=== PATIENT | female | born 1950 | race Caucasian/White ===

== ENCOUNTER → 2016-06-09 | Outpatient (CLI) | payer OTHER, MEDICARE | LOC: RAD 01:28 | DX: Z12.31 Encounter for screening mammogram for malignant neoplasm of breast (principal) ==

== ENCOUNTER → 2017-01-29 | Outpatient (CLI) | payer OTHER, MEDICARE | LOC: ULTRA 09:02 | DX: M25.461 Effusion, right knee (principal) ==

== ENCOUNTER → 2017-02-24 | Outpatient (CLI) | payer OTHER, MEDICARE | LOC: MRI 14:50 | DX: M47.896 Other spondylosis, lumbar region (principal); M51.36 Other intervertebral disc degeneration, lumbar region; M12.88 Other specific arthropathies, not elsewhere classified, other specified site; M48.061 Spinal stenosis, lumbar region without neurogenic claudication ==

== ENCOUNTER → 2017-04-02 | Outpatient (CLI) | payer OTHER, MEDICARE ==
[~2017-04-02] VITALS: Ht 157.5 cm; Wt 62.1 kg
[~2017-04-02] MED LIST: CALCIUM 600 MG1 EAC2 PO; ESTRADIOL 1 MG T1 M1 PO; FISH OIL 1,001000 M2 PO; LIPITOR 20 MG T20 M1 PO; NABUMETONE 500500 M1 PO; PROVERA2.5 MG PO; TYLENOL325 MG PO
--- NOTE | ~2017-04-02 | HPC ---
[facility] [place] [address] PAIN MANAGEMENT CONSULTATION Name: MADINAJUANAVIRA JEREMIE Room #: REG [facility] Shae#: [id number] Admission: 04/02/17 Attend Phys: Matt Mann DO Discharge: Date of : 46 Report #: [id number] THIS REPORT FOR: //name// CC: Rosendo Mann The patient is a 66-year-old female seen in consultation on 03/13/2017, diagnosed with symptomatic lumbar radiculopathy, the right L5 radicular distribution. Started the patient on nabumetone 500 mg b.i.d. and sought authorization for lumbar epidural injection under fluoroscopy. The patient returns to pain clinic today noting pain remains problematic; rates pain at 2-3 on a VAS, but notes it is primarily exacerbated at night; interferes with function and sleeping. Pain is in the right L5 distribution with pain in the back of the right leg down to the foot. Physical exam is unchanged from last visit. The patient wishes to proceed with epidural injection under fluoroscopy as discussed at prior visit. She did note preprocedure that she does "get lightheaded" when she is nervous and with injections. ASSESSMENT: Symptomatic lumbar radiculopathy. PROCEDURE: Lumbar epidural injection under fluoroscopy. PROCEDURE NOTE: After both written and informed consent to include risk of spinal cord damage, increased pain, weakness and dural puncture, the patient was taken to the fluoroscopy suite, placed in the prone position. After sterile prep and drape, a skin wheal with lidocaine was raised. A 22-gauge epidural Tuohy needle was inserted in the midline at L5-S1 with good loss to resistance. Negative aspiration for cerebrospinal fluid or blood was noted. Then 1 mL of Omnipaque under biplanar fluoroscopy showed good spread within the epidural space. This was followed with 80 mg of triamcinolone plus 1 mL of 1.5% preservative-free Xylocaine, 0.5 mL Xylocaine was then injected to flush the needle; it was removed. The patient was monitored for an appropriate period of time and discharged in good and stable condition. In the recovery room, the patient did have a "vasovagal" type presentation. She felt subjectively lightheaded, blood pressure dropped down to 80 systolic. She was placed supine with the legs elevated. I started an IV in the dorsum of the right wrist. This unfortunately infiltrated. This was immediately noted, that IV was discontinued. I started the second IV in the left forearm, a 20-gauge Angiocath. We infused 500 mL over about 45 minutes. The patient had a nice response, blood pressure returned in the mid 90s. Subjective presyncopal symptoms resolved. The patient was monitored for approximately 1 hour. IV was discontinued. The patient states she felt "much better." She was alert and [address] [address] PAIN MANAGEMENT CONSULTATION Name: VIRA RAMOS JEREMIE Room #: REG [facility] Shae#: [id number] Admission: 04/02/17 Attend Phys: Matt Mann DO Discharge: Date of : 46 Report #: [id number] oriented. Discharged in good and stable condition. Followup appointment is in 3-4 weeks to evaluate efficacy of interventional therapy. <ELECTRONICALLY SIGNED> By: Matt Mann DO 04/03/17 0731 [id number] 2102 Matt Mann DO /nt
[2017-04-02 09:48] VITALS: BP 139/87
== END | disposition home or self-care (01) ==
LOC: PAIN 06:23
DX: M54.16 Radiculopathy, lumbar region (principal); G89.29 Other chronic pain; Z79.899 Other long term (current) drug therapy

== ENCOUNTER → 2017-04-24 | Outpatient (CLI) | payer OTHER, MEDICARE ==
[~2017-04-24] VITALS: Ht 157.5 cm; Wt 62.0 kg
--- NOTE | ~2017-04-24 | HPC ---
[facility] Tamra Gonzalez [facility] [place] [address] PAIN MANAGEMENT CONSULTATION Name: MADINAJUANAVIRADANICA CHAO Room #: REG [facility]SEIN Kaufman#: [id number] Admission: 04/24/17 Attend Phys: Matt Mann DO Discharge: Date of : 46 Report #: [id number] THIS REPORT FOR: //name// CC: Rosendo Mann The patient is a pleasant 66-year-old female, prior seen in consultation on 03/13/2017, diagnosed with symptomatic lumbar radiculopathy. We sought authorization for epidural injection under fluoroscopy. This was accomplished on 04/02/2017, at L5-S1. The patient did have a vasovagal response following the procedure. She returns to pain clinic today noting she had dramatic improvement of baseline pain. She states pain is 95% overall improved. She played tennis with no pain. She completed nabumetone and stopped about a week ago with no change in symptoms. He returns to pain clinic today noting pain is 0 on a VAS, she has not limited her activity. PHYSICAL EXAMINATION: Shows a 66-year-old female, BMI is 25 kg/m2. Blood pressure is 121/71, pulse 102, respirations 16. Rises from chair easily. Gait is tandem. Lower extremity strength is symmetric. Lumbar flexion is good. Straight leg raise is negative. ASSESSMENT: Symptomatic lumbar radiculopathy by clinical exam and history, excellent relief following single epidural injection. RECOMMENDATIONS: If lumbar radicular symptoms begin to recur, we will have the patient to start gxwd-kce-kohwhtk Aleve. If this does not afford adequate relief, I will enable the nursing staff to phone in a prescription for nabumetone 500 mg b.i.d., limit 60 tablets. If this does not afford adequate relief, we will be happy to see the patient for reevaluation. If the patient does need another epidural injection, we will likely want to start an IV first and give her some fluid. She does note that she gets lightheaded when she donates blood or gets a blood draw. I pointed out she simply had a vasovagal response, this is not unexpected, seen in many patients, but certainly can be startling subjectively. We did point out that any interventional therapies we do, i.e., the epidural injection under fluoroscopy with steroid are completely elective. [address] [address] PAIN MANAGEMENT CONSULTATION Name: VIRA RAMOS Room #: REG [facility] Kaufman#: [id number] Admission: 04/24/17 Attend Phys: Matt Mann DO Discharge: Date of : 46 Report #: [id number] The patient was discharged in good and stable condition. Follow up simply as needed. <ELECTRONICALLY SIGNED> By: Matt Mann DO 04/27/17 0759 0912 Patricia Mann DO /nt
[2017-04-24 08:44] VITALS: BP 121/71
== END ==
LOC: PAIN 04-23 14:21
DX: M54.16 Radiculopathy, lumbar region (principal)

== ENCOUNTER → 2017-06-10 | Outpatient (CLI) | payer OTHER, MEDICARE | LOC: RAD 01:14 | DX: Z12.31 Encounter for screening mammogram for malignant neoplasm of breast (principal) ==

== ENCOUNTER → 2018-04-19 | Outpatient (CLI) | payer OTHER, MEDICARE ==
[~2018-04-19] VITALS: Ht 157.5 cm; Wt 59.0 kg
[~2018-04-19] MED LIST changes: +CENTRUM SILVER1 EAC4 PO
--- NOTE | ~2018-04-19 | PATH ---
[facility] [place] [address] PATHOLOGY RPT PROCEDURE Name: SUSAN RAMOSLIE Room #: REG [facility]..#: [id number] Admission: 04/19/18 Date of : 46 Discharge: Report #: [id number] Path Case #: [id number] [facility] Accession Number: [id number] . 01 Material submitted: . PART A: BX OF POLYPS X2 AT PROX ASCENDING COLON PART B: BX OF POLYP AT HEPATIC FLEXURE PART C: BX OF POLYP AT MID TRANSVERSE PART D: BX OF POLYP AT 20CM . 01 Clinical history: . Pre-OP DX: Hx of polyps Post-OP DX: Colon polyps, diverticulosis, hemorrhoids . 02 Diagnosis: A. Polyps x 2, at proximal ascending colon, endoscopic biopsy: - Multiple fragments showing tubular adenoma. - Negative for high grade dysplasia. - One fragment showing lymphoid aggregate and hyperplastic changes. . B. Polyp, at hepatic flexure, endoscopic biopsy: - Tubular adenoma. - Negative for high grade dysplasia. . C. Polyp, at mid transverse colon, endoscopic biopsy: - Hyperplastic polyp. - Negative for dysplasia. . D. Polyp, at 20 cm, endoscopic biopsy: - Tubular adenoma. - Negative for high grade dysplasia. (IUV/db; 04/20/18) LBQ/04/20/2018 . 02 Electronically signed: . Karolyn Perez MD, Pathologist NPI- [id number] . 01 Gross description: . A. Received in formalin labeled "Susan Ramos, BX of polyps x2 at proximal ascending colon," are 2 segments of lyons soft tissue measuring 0.9 x 0.2 x 0.2 cm in aggregate dimensions and ranging from 0.3 to 0.6 cm in maximum dimension. The specimen is submitted entirely in cassette A1. . B. Received in formalin labeled "Susan Ramos, BX of polyp at hepatic flexure," is a single segment of lyons soft tissue measuring 0.4 cm in maximum dimension. The specimen is entirely submitted in cassette B1. [address] [address] PATHOLOGY RPT PROCEDURE Name: SUSAN RAMOS Room #: REG [facility] Shae#: [id number] Admission: 04/19/18 Date of : 46 Discharge: Report #: [id number] Path Case #: [id number] . C. Received in formalin labeled "Susan Ramos, BX of polyp at mid transverse," is a single segment of lyons soft tissue measuring 0.3 cm in maximum dimension. The specimen is submitted entirely in cassette C1. . D. Received in formalin labeled "Susan Ramos, BX of polyp at 20 cm," is a single segment of lyons soft tissue measuring 0.5 cm in maximum dimension. The specimen is entirely submitted in cassette D1. (TSD; 04/19/2018) TOB/TOB . 02 Pathologist provided ICD-10: D12.2, D12.3, D12.6 . 02 CPT . 317728, 679803, 973190, 037032 Specimen Comment: A courtesy copy of this report has been sent to Specimen Comment: [phone], . Specimen Comment: Report sent to / DR ORDAZ Specimen Comment: A duplicate report has been generated due to demographic updates. Performed at: [address] [facility], [place], [place] [id number] MD Krishan Gallardo MD Phone: [phone] Performed at: [address] [facility] [id number] MD Karolyn Perez MD Phone: [phone]
--- NOTE | ~2018-04-19 | P ---
[facility] [place] [address] PROCEDURE REPORT Name: VIRA RAMOSLIE Room #: REG [facility]#: [id number] Admission: 04/19/18 Attend Phys: John Gallagher MD Discharge: Date of : 46 Report #: [id number] THIS REPORT FOR: //name// CC: ROSA Gallagher BRIEF HISTORY: The patient is a 67-year-old woman with history of multiple colon adenomas 3 years ago. She presents for high risk screening colonoscopy. PREOPERATIVE DIAGNOSES: 1. High risk screening colonoscopy. 2. History of colon polyps. MEDICATIONS: Deep sedation with propofol per Anesthesia. SPECIMEN: 1. Diminutive polyps x 2, proximal ascending colon. 2. Diminutive polyp, hepatic flexure. 3. Diminutive polyp, mid transverse colon. 4. Diminutive polyp at 20 cm. ESTIMATED BLOOD LOSS: 3 mL. PROCEDURE: Colonoscopy to cecum and terminal ileum with biopsy. FINDINGS: Prior to propofol sedation, procedure of colonoscopy discussed with the patient as well as potential risks and its complications. She indicates she understands and desires to proceed. DESCRIPTION OF PROCEDURE: With the patient in left lateral decubitus position, digital examination was completed, which revealed no abnormalities. Subsequently, the Olympus video colonoscope was introduced in the rectum, advanced under direct vision to the cecum, done with minimal difficulty. The cecum was identified by the ileocecal valve and the appendiceal orifice. I was able to visualize the distal segment of the terminal ileum, which was inspected and noted to be unremarkable. At that point, the scope was withdrawn and careful circumferential views obtained including retroflexing the scope in the ascending colon. Upon slow withdrawal of the scope, the prep was noted to be excellent. The mucosa was within normal limits, normal vascular pattern, normal light reflex. As we withdrew the scope, the mucosa was inspected. The mucosa was within normal limits, normal vascular pattern and normal light reflex. As we withdrew the scope, 2 diminutive polyps removed by biopsy from the proximal ascending colon, another diminutive polyp removed by biopsy in the hepatic flexure, another diminutive polyp removed by biopsy in the mid transverse colon. Finally, the last diminutive polyp was removed by biopsy 20 cm. The mucosa was otherwise unremarkable. In the sigmoid colon, there was mild to moderate [address] [address] PROCEDURE REPORT Name: VIRA RAMOS Room #: REG [facility]#: [id number] Admission: 04/19/18 Attend Phys: John Gallagher MD Discharge: Date of : 46 Report #: [id number] sigmoid diverticular disease and endoscopic evidence of diverticulitis. The scope was withdrawn in the rectum. Upon retroflexion, small hemorrhoids were seen. Scope was withdrawn. The patient tolerated the procedure well. CONDITION OF THE PATIENT UPON DISCHARGE: Following procedure, the patient was drowsy, arousable and conversant and will be discharged home when fully ambulatory. INSTRUCTIONS TO THE PATIENT AND FAMILY AT THE TIME OF DISCHARGE: We will follow up on the path of the polyps. 5 polyps removed today. If 3 or more adenomatous, she is to return in 3 years; if only 1 or 2 adenomas, then 5 years would be indicated. If none are adenomas, then 10 years would be indicated. Last colonoscopy was 3 years ago. Withdrawal time from cecum was 13 minutes 33 seconds. By: 0817 0857 John Gallagher MD /nt
== END | disposition home or self-care (01) ==
LOC: GI 06:41
DX: Z12.11 Encounter for screening for malignant neoplasm of colon (principal); Z86.010 Personal history of colon polyps; D12.2 Benign neoplasm of ascending colon; D12.3 Benign neoplasm of transverse colon; K63.5 Polyp of colon; K57.30 Diverticulosis of large intestine without perforation or abscess without bleeding; K57.32 Diverticulitis of large intestine without perforation or abscess without bleeding; K63.89 Other specified diseases of intestine; K64.9 Unspecified hemorrhoids; G43.909 Migraine, unspecified, not intractable, without status migrainosus; G47.33 Obstructive sleep apnea (adult) (pediatric); E78.5 Hyperlipidemia, unspecified; Z98.890 Other specified postprocedural states; Z79.899 Other long term (current) drug therapy
CPT/HCPCS: 62110; 62900

== ENCOUNTER → 2018-06-11 | Outpatient (CLI) | payer OTHER, MEDICARE | LOC: RAD 01:34 | DX: Z12.31 Encounter for screening mammogram for malignant neoplasm of breast (principal) ==

== ENCOUNTER → 2019-06-13 | Outpatient (CLI) | payer OTHER, MEDICARE | LOC: BC 10:31 | DX: Z12.31 Encounter for screening mammogram for malignant neoplasm of breast (principal) ==

== ENCOUNTER → 2020-06-14 | Outpatient (CLI) | payer OTHER, MEDICARE | LOC: BC 09:53 | PROVIDERS: ATTEND Obstetrics & Gynecology | DX: Z12.31 Encounter for screening mammogram for malignant neoplasm of breast (principal) ==

== ENCOUNTER → 2021-06-17 | Outpatient (CLI) | payer OTHER, MEDICARE | LOC: BC 09:36 | PROVIDERS: ATTEND Obstetrics & Gynecology | DX: Z12.31 Encounter for screening mammogram for malignant neoplasm of breast (principal) ==